=== PATIENT | male | born 1940 | race Caucasian/White ===

== ENCOUNTER 2018-08-30 06:56 | Day surgery (SDC) | payer MEDICARE ==
[2018-08-25 15:25] VITALS: BMI 28.3
[~2018-08-30 06:56] MED LIST: LACTATED RINGERS 1,000 ML IV SCH; LIDOCAINE 1% 20 ML VIAL (10MG/ML) FOR IV START INTRADERMA PRN
[2018-08-30 07:29] VITALS: TEMP 98.6
--- NOTE | 2018-08-30 07:58 | P.GSHP ---
History of Present Illness H&P Date: 08/30/18 Chief Complaint: Screening colonoscopy This a 78-year-old male presents today for screening colonoscopy. Patient denies any significant complaints. Past Medical History Past Medical History: Hyperlipidemia, Hypertension Additional Past Medical History / Comment(s): currently having bloating and belching after eating History of Any Multi-Drug Resistant Organisms: None Reported Past Surgical History: Orthopedic Surgery Additional Past Surgical History / Comment(s): 08/02/16 Laparoscopic obinna fundoplication. Other surgical hx: knee arthroscopy, EGD Past Anesthesia/Blood Transfusion Reactions: No Reported Reaction Additional Past Anesthesia/Blood Transfusion Reaction / Comment(s): never has had a blood transfusion Smoking Status: Never smoker - Past Family History Mother Family Medical History: No Reported History Additional Family Medical History / Comment(s): Mother had heart problems and lived to be 75 or 76 yrs old. Father Family Medical History: Coronary Artery Disease (CAD) Additional Family Medical History / Comment(s): heart problem- of a [place] at the age of 66 yrs. Medications and Allergies Home Medications Medication Instructions Recorded Confirmed Type Ascorbic Acid [Vitamin C] 500 mg PO DAILY 12/26/15 08/30/18 History Aspirin 81 mg PO DAILY 12/26/15 08/30/18 History Cholecalciferol [Vitamin D3] 1,000 unit PO DAILY 12/26/15 08/30/18 History Irbesartan [Avapro] 150 mg PO QAM 12/26/15 08/30/18 History [place]-3 Fatty Acids/Fish Oil [Fish 1 each PO DAILY 12/26/15 08/30/18 History Oil 1,000 mg Softgel] Pravastatin Sodium [Pravachol] 80 mg PO HS 12/26/15 08/30/18 History Vitamin E (Dl,Tocopheryl Acet) 400 unit PO DAILY 12/26/15 08/30/18 History [Vitamin E] Allergies Allergy/AdvReac Type Severity Reaction Status Date / Time codeine AdvReac Nausea & Verified 08/30/18 07:08 Vomiting Surgical - Exam Vital Signs Temp Pulse Resp BP Pulse Ox 98.6 F 63 17 178/83 100 08/30/18 07:28 08/30/18 07:28 08/30/18 07:28 08/30/18 07:28 08/30/18 07:28 - General well developed, no distress - Eyes PERRL - ENT normal pinna - Neck no masses - Respiratory normal expansion - Cardiovascular Rhythm: regular - Abdomen Abdomen: soft Assessment and Plan Assessment: We'll perform screening colonoscopy
[2018-08-30] MEDS ORDERED: PROPOFOL 10 MG/ML 20 ML VIAL IV ONE (08:05)
[2018-08-30] MEDS ORDERED: LIDOCAINE 1% INJ 10MG/ML (20 ML MDV) ONE (08:05)
--- NOTE | 2018-08-30 08:16 | P.OP ---
Date of Procedure: 08/30/18 Preoperative Diagnosis: Screening colonoscopy Postoperative Diagnosis: Diverticulosis Procedure(s) Performed: Colonoscopy Anesthesia: MAC Surgeon: Bonifacio Augustin Pathology: none sent Condition: stable Disposition: PACU Description of Procedure: The patient's placed on the endoscopy table in the lateral position. He received IV sedation. Digital rectal exam was performed which revealed no abnormalities. The flexible colonoscope was then placed patient anus and passed throughout the entire colon. The ileocecal valve was visualized. The cecum, ascending and transverse colon appeared normal. The descending colon appeared normal. In the sigmoid colon there is moderate diverticular changes. There was no evidence of diverticulitis. Scope was then brought back the rectum and this appeared normal. The scope was withdrawn for patient.
[2018-08-30 08:23] VITALS: RESP 16
[2018-08-30 08:37] VITALS: BP 174/84; PULSE 63
== END 2018-08-30 08:57 | disposition home or self-care (01) ==
LOC: ORWHC2ENDO 06:56
PROVIDERS: ATTEND Surgery
DX: Z12.11 Encounter for screening for malignant neoplasm of colon (principal); K57.30 Diverticulosis of large intestine without perforation or abscess without bleeding; E78.5 Hyperlipidemia, unspecified; I10 Essential (primary) hypertension; Z79.82 Long term (current) use of aspirin; Z79.899 Other long term (current) drug therapy; Z88.5 Allergy status to narcotic agent; Z91.040 Latex allergy status
CPT/HCPCS: J2001; J2704; G0121; 45378

== ENCOUNTER 2022-06-18 20:48 | Emergency (ER) | payer MEDICARE ==
[2022-06-18 20:56] VITALS: TEMP 98
[2022-06-18] MEDS ORDERED: TOPICAL SKIN ADHESIVE 1 EACH AMP TOPICAL ONE ×2 (21:46→23:49)
--- NOTE | 2022-06-18 22:34 | CT ---
EXAMINATION TYPE: CT brain [place] con DATE OF EXAM: 06/18/2022 COMPARISON: None HISTORY: fall head LAC CT DLP: 1384.9 mGycm Automated exposure control for dose reduction was used. Images of the brain and cervical spine obtained with no contrast. There is cerebral cortical atrophy. There is no mass effect or midline shift. No sign of intracranial hemorrhage. Calvarium is intact. There is some mucosal thickening in the mastoid air cells. There is minimal mucosal thickening right maxillary sinus. The cervical vertebra have normal alignment. There is degenerative disc space narrowing at C5-6 and C 6-7 with spurring of the endplates. Posterior elements are intact. There is multilevel cervical facet arthropathy. No compression fracture. The skull base is intact. IMPRESSION: Multilevel spondylotic changes. No fracture. Cerebral atrophy. No acute intracranial abnormality. Mild bilateral mastoiditis.
--- NOTE | 2022-06-18 22:36 | XR ---
EXAMINATION TYPE: XR chest 2V DATE OF EXAM: 06/18/2022 COMPARISON: NONE HISTORY: Fall. Pain TECHNIQUE: 2 view FINDINGS: Heart is normal. Lungs are clear of infiltrate. No heart failure. There are no hilar masses . There are chest leads. Bony thorax is intact IMPRESSION: No active cardiopulmonary disease. Normal heart.
--- NOTE | 2022-06-18 22:38 | XR ---
EXAMINATION TYPE: XR elbow complete RT DATE OF EXAM: 06/18/2022 COMPARISON: NONE HISTORY: Fall. Pain TECHNIQUE: 3 views FINDINGS: Elbow joint spaces are normal. I see no fracture nor dislocation. There is vascular calcifi cation. IMPRESSION: Negative right elbow exam. No fracture seen.
[2022-06-18 22:43] LABS: Basophils # (A) 0.1 k/uL (0-0.2); Basophils % (A) 1 %; Eosinophils # (A) 0.2 k/uL (0-0.7); Eosinophils % (A) 1 %; HCT 43.7 % (39.0-53.0); Lymphocytes # (A) 1.4 k/uL (1.0-4.8); Lymphocytes % (A) 9 %; MCH 30.4 pg (25.0-35.0); MCHC 34.3 g/dL (31.0-37.0); MCV 88.5 fL (80.0-100.0); Mean Platelet Volume 8.5; Monocytes # (A) 0.8 k/uL (0-1.0); Monocytes % (A) 5 %; Neutrophils # (A) 12.6 k/uL (1.3-7.7); Neutrophils % (A) 82 %; Platelet Count 269 k/uL (150-450); RBC 4.94 m/uL (4.30-5.90); RDW 13.8 % (11.5-15.5); WBC 15.4 k/uL (3.8-10.6)
[2022-06-18 23:00] LABS: ALT 9 U/L (4-49); AST 26 U/L (17-59); African American GFR (CKD) >90 (>60 ml/min/1.73 sqM); Albumin 4.3 g/dL (3.5-5.0); Alkaline Phosphatase 82 U/L (38-126); Anion Gap 14 mmol/L; Blood Urea Nitrogen 16 mg/dL (9-20); Calcium 9.8 mg/dL (8.4-10.2); Carbon Dioxide 23 mmol/L (22-30); Chloride 101 mmol/L (98-107); Glucose 133 mg/dL (74-99); Non-African American GFR(CKD) 83 (>60 ml/min/1.73 sqM); Potassium 4.4 mmol/L (3.5-5.1); Sodium 138 mmol/L (137-145); Total Bilirubin 0.5 mg/dL (0.2-1.3); Total Protein 7.3 g/dL (6.3-8.2)
[2022-06-18 23:10] LABS: Partial Thromboplastin Time 24.7 sec (22.0-30.0); Prothrombin Time 11.2 sec (9.0-12.0)
[2022-06-18 23:24] VITALS: RESP 18
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
[2022-06-19 00:47] VITALS: BP 118/52; PULSE 88
== END 2022-06-19 00:47 | disposition home or self-care (01) ==
LOC: EC 20:48
DX: S01.81XA Laceration without foreign body of other part of head, initial encounter (principal); S01.01XA Laceration without foreign body of scalp, initial encounter; S51.011A Laceration without foreign body of right elbow, initial encounter; S06.0X9A Concussion with loss of consciousness of unspecified duration, initial encounter; T14.8XXA Other injury of unspecified body region, initial encounter; R55 Syncope and collapse; I10 Essential (primary) hypertension; E78.5 Hyperlipidemia, unspecified; Z87.891 Personal history of nicotine dependence; Z88.5 Allergy status to narcotic agent; W18.00XA Striking against unspecified object with subsequent fall, initial encounter
CPT/HCPCS: 12004; 12011; 36415; 70450; 71046; 72125; 80053; 83880; 84484; 85025; 85610; 85730; 93005; 99285

== ENCOUNTER → 2022-08-17 | Outpatient (CLI) | payer MEDICARE ==
--- NOTE | 2022-08-17 15:26 | XR ---
EXAMINATION TYPE: XR chest 2V DATE OF EXAM: 08/17/2022 COMPARISON: 06/18/2022 INDICATION: Precordial pain TECHNIQUE: Frontal and lateral views of the chest are obtained. FINDINGS: The heart size is normal. The pulmonary vasculature is normal. The lungs are clear. Mild hyperinflation. Consider emphysematous change. IMPRESSION: 1. No acute pulmonary process.
[2022-08-17 18:31] LABS: HCT 51.3 % (39.6-50.0); HGB 16.8 g/dL (13.0-17.0); MCH 29.6 pg (27.0-32.0); MCHC 32.7 g/dL (32.0-37.0); MCV 90.3 fL (80.0-97.0); Mean Platelet Volume 10.8 fL (9.5-12.2); NRBC Per 100 WBC 0 /100 WBCS (0.0-0.0); Platelet Count 241 X 10*3/uL (140-440); RBC 5.68 X 10*6/uL (4.40-5.60); RDW 12.2 % (11.5-14.5); WBC 13.16 X 10*3/uL (4.50-10.00)
[2022-08-17 19:55] LABS: African American GFR (CKD) 98.9 (60.0-200.0); Anion Gap 11.6 mmol/L (10.00-18.00); BUN/Creat Ratio 23.01 Ratio (12.00-20.00); Blood Urea Nitrogen 17.9 mg/dL (9.0-27.0); Calcium 9.5 mg/dL (8.7-10.3); Carbon Dioxide 26.6 mmol/L (20.0-27.5); Non-African American GFR(CKD) 85.3 (60.0-200.0); Potassium 4.2 mmol/L (3.5-5.5)
== END | disposition home or self-care (01) ==
LOC: LABWHC1 14:26
PROVIDERS: ATTEND Internal Medicine Cardiovascular Disease
DX: R07.2 Precordial pain (principal)
CPT/HCPCS: 36415; 71046; 80048; 85027

== ENCOUNTER → 2024-11-14 | Outpatient (CLI) | payer MEDICARE ==
[2024-11-14 15:17] LABS: ALT 9 U/L (10-49); AST 16 U/L (14-35); Chol/HDL Ratio 2.13 Ratio; LDL Cholesterol,Calculated 76.8 mg/dL (0.0-131.0); VLDL Calculation 17.16 mg/dL (5.00-40.00)
== END | disposition home or self-care (01) ==
LOC: LABWHC1 09:39
PROVIDERS: ATTEND Internal Medicine Cardiovascular Disease
DX: E78.2 Mixed hyperlipidemia (principal)
CPT/HCPCS: 36415; 80061; 84450; 84460